=== PATIENT | female | born 1995 | race African-American/Black ===

== ENCOUNTER 2018-06-20 07:59 | Day surgery (SDC) | payer BC ==
[2018-06-20 08:51] LABS: POTASSIUM 3.6 mmol/L (3.6-5.2)
[2018-06-20 09:00] LABS: PLATELET COUNT 354 K/uL (152-353)
== END 2018-06-20 10:50 | disposition home or self-care (01) ==
LOC: OR 07:59
PROVIDERS: Student in an Organized Health Care Education/Training Program
PROC: 0DB68ZZ Excision of Stomach, Via Natural or Artificial Opening Endoscopic (ICD-10-PCS; principal; 2018-06-20)
DX: K29.50 Unspecified chronic gastritis without bleeding (principal); K25.7 Chronic gastric ulcer without hemorrhage or perforation; K44.9 Diaphragmatic hernia without obstruction or gangrene; R10.13 Epigastric pain
CPT/HCPCS: 80053; 81025; 85027; J2001; J2250; J2405; J2704